=== PATIENT | female | born 1985 | race Caucasian/White ===

== ENCOUNTER 2021-01-15 13:09 | Emergency (ER) | payer OTHER ==
--- NOTE | 2021-01-15 14:40 | ED Physician Documentation ---
History of Present Illness - Stated complaint Stated Complaint: CHEST TIGHTNESS/BLURRED VISION - Chief complaint Chief Complaint: Resp - Additonal information Additional information: 35-year-old female presents the emergency department for evaluation of worsening shortness of breath over the last month. She reports that she exercises daily but over the last month she has noted a decreased exercise tolerance. She self admits that she is a hypochondriac and has severe whitecoat syndrome and feels that the shortness of air is causing her anxiety to be worse. She is also concerned that she may have long-haul COVID-19 symptoms. 2 months ago she did have some loss of taste and smell and thinks that she may have had COVID-19 infection though she did not get tested. She became very worried this morning when she was sitting at home watching TV and had a aura in both of her eyes that limited her vision. She denies any headache nausea or vomiting associated with this. No diplopia. Was very brief lasted seconds and is not present at this time. She takes no oral contraceptives, no unilateral leg swelling, no recent surgery or immobilization no personal history of blood clots or cancer. She takes no prescribed medications but does take a whole host of supplements from a health food store. Past medical history includes medical conditions similar to ankylosing spondylosis which she is unsure the full name of, irritable bowel syndrome, 2 gene MTHFR as well as PCOS. Review of Systems Constitutional: denies: Fever, Chills, Myalgias Eyes: reports: Other (Visual aura bilaterally lasted seconds this morning. Not present at baseline). denies: Loss of vision, Discharge, Irritation Ears: reports: Reviewed and negative Nose: reports: Reviewed and negative Throat: reports: Reviewed and negative Cardiac: denies: Chest pain / pressure, Palpitations, Pedal edema, Calf pain Respiratory: reports: Dyspnea. denies: Cough, Hemoptysis, Wheezing GI: denies: Abdominal Pain, Nausea, Vomiting : reports: Reviewed and negative Skin: reports: Reviewed and negative Musculoskeletal: reports: Reviewed and negative Neurologic: reports: Reviewed and negative PD PAST MEDICAL HISTORY - Present Medications Home Medications: Ambulatory Orders Medication Instructions Recorded Confirmed No Known Home Medications 01/15/21 01/15/21 - Allergies Allergies/Adverse Reactions: Allergies Allergy/AdvReac Type Severity Reaction Status Date / Time amoxicillin Allergy Rash Verified 01/15/21 13:24 PD ED PE EXPANDED - General General: Alert, No acute distress, Anxious - Neck Neck: Supple w/out meningeal sx, No tenderness. No: Adenopathy - Cardiac Cardiac: Regular Rate, Radial strong equal, Pedal strong equal, Cap refill < 2 sec. No: Murmur Present - Respiratory Respiratory: Clear to ausultation cali. No: Distress, Labored - Abdomen Abdomen: Normal Bowel sounds. No: Tender to palpation - Derm Derm: Normal color, Warm and dry. No: Rash - Extremities Extremities: Normal, Pedal edema bilateral. No: Deformity, Tenderness - Neuro Neuro: Alert and Oriented X 3, CNII-XII intact, Normal gait, Normal finger nose, Normal speech. No: Confused, Disoriented - GCS Eye Opening: Spontaneous Motor: Obeys Commands Verbal: Oriented Total: 15 - Psych Psych: Anxious, Pressured speech Results - Vitals Vitals: Vital Signs - 24 hr 01/15/21 01/15/21 13:18 15:24 Temperature 36.7 C 36.9 C Heart Rate 85 71 Respiratory 18 14 Rate Blood Pressure 148/82 H 123/72 O2 Saturation 99 100 Oxygen O2 Source Room air - EKG (time done) 1314 Rate: Rate (enter#) (91) Rhythm: NSR [place]der[place]: Normal Intervals: Normal TN QRS: Normal Ischemia: Normal ST segments Compare to prior EKG: Old EKG unavailable Computer interpretation: Agree with computer - Labs Labs: Laboratory Tests 01/15/21 01/15/21 01/15/21 14:49 14:49 14:49 WBC 7.1 RBC 4.38 Hgb 12.9 Hct 38.3 MCV 87.4 MCH 29.5 MCHC 33.7 RDW 12.9 Plt Count 241 MPV 11.6 H Neut # (Auto) 4.8 Lymph # (Auto) 1.8 [place] # (Auto) 0.4 Eos # (Auto) 0.1 Baso # (Auto) 0.0 Absolute Nucleated RBC 0.00 Nucleated RBC % 0.0 D-Dimer Sodium 139 Potassium 3.8 Chloride 104 Carbon Dioxide 26 Anion Gap 9.0 BUN 12 Creatinine 0.8 Estimated GFR (MDRD) 83 L Glucose 95 Calcium 9.3 Total Bilirubin 0.7 AST 16 ALT 24 Alkaline Phosphatase 49 Troponin I High Sens 3.7 Total Protein 7.8 Albumin 4.5 Globulin 3.3 Albumin/Globulin Ratio 1.4 Lipase 25 01/15/21 14:49 WBC RBC Hgb Hct MCV MCH MCHC RDW Plt Count MPV Neut # (Auto) Lymph # (Auto) [place] # (Auto) Eos # (Auto) Baso # (Auto) Absolute Nucleated RBC Nucleated RBC % D-Dimer < 200.0 L Sodium Potassium Chloride Carbon Dioxide Anion Gap BUN Creatinine Estimated GFR (MDRD) Glucose Calcium Total Bilirubin AST ALT Alkaline Phosphatase Troponin I High Sens Total Protein Albumin Globulin Albumin/Globulin Ratio Lipase - Rads (name of study) CXR Radiology: Final report received (No acute cardiopulmonary process.) PD MEDICAL DECISION MAKING - ED course Complexity details: reviewed results, re-evaluated patient, considered differential, d/w patient ED course: 35-year-old female presents emergency department for evaluation of worsening shortness of air over the last month. This was also associated with a very brief period of bilateral aura and both of her eyes at this morning that caused her to have panic and worry. She is concerned that she may have had COVID-19 2 months ago and that she might be presenting as a long-haul her. Screening EKG shows no ischemic or worrisome findings. High-sensitivity troponin and D-dimer are negative. Chest x-ray shows no pneumonia, cardia megaly or worrisome finding otherwise. Patient reported to provider that when she was told that her labs x-ray and EKG were essentially normal she felt much better and thinks that she just has anxiety and whitecoat syndrome. I did discuss with her that exercise intolerance should always be evaluated in the long-term by her primary care provider. She may benefit from referral for an outpatient echocardiogram or stress test but is not indicated emergently today in the emergency department. Departure - Departure Disposition: Home, Self Care Clinical Impression: Shortness of breath, Aura Condition: Stable Record reviewed to determine appropriate education?: Yes Comments: Leah you are seen today in the emergency department today for worsening shortness of breath with activity over the last month as well as a brief episode of vision change in both your eyes. Your screening labs, chest x-ray and EKG are all essentially unremarkable. However new or worsening shortness of breath and somebody is otherwise young and healthy should be further evaluated on an outpatient basis with primary care doctor. You may benefit from an outpatient stress test or echocardiogram. The aura in both your eyes this morning may have been of visual or occipital migraine. Please discuss this event with your eye doctor. Return to the emergency department if you have any fainting episodes, sudden weakness in your arms or legs or cannot breathe adequately.
--- NOTE | 2021-01-15 14:53 | XRAY Report ---
PROCEDURE: Chest 1 View X-Ray INDICATIONS: SOA TECHNIQUE: One view of the chest was acquired. COMPARISON: None FINDINGS: Surgical changes and devices: None. Lungs and pleura: No pleural effusions or pneumothorax. Lungs are clear. Mediastinum: Mediastinal contours appear normal. Heart size is normal. Bones and chest wall: No suspicious bony lesions. Overlying soft tissues appear unremarkable. IMPRESSION: No acute pulmonary process. Reviewed by: Shannon Ayala MD on 01/15/2021 2:52 PM PDT Approved by: Shannon Ayala MD on 01/15/2021 2:52 PM PDT Station ID: [id number]
[2021-01-15 15:22] LABS: ALBUMIN 4.5 g/dL (3.2-5.5); ALBUMIN/GLOBULIN RATIO 1.4 (1.0-2.2); BILIRUBIN,TOTAL 0.7 mg/dL (0.2-1.0); CALCIUM 9.3 mg/dL (8.5-10.3); CREATININE 0.8 mg/dL (0.4-1.0); POTASSIUM 3.8 mmol/L (3.5-5.0); TOTAL PROTEIN 7.8 g/dL (6.7-8.2)
[2021-01-15 15:25] LABS: BASOPHILS % (AUTO) 0.6 %; EOSINOPHILS # (AUTO) 0.1 10^3/uL (0.0-0.7); EOSINOPHILS % (AUTO) 0.8 %; HCT - HEMATOCRIT 38.3 % (37.0-47.0); HGB - HEMOGLOBIN 12.9 g/dL (12.0-16.0); LYMPHOCYTES # (AUTO) 1.8 10^3/uL (1.5-3.5); MEAN CORPUSCULAR HEMOGLOBIN 29.5 pg (27.0-31.0); MEAN CORPUSCULAR HGB CONC 33.7 g/dL (32.0-36.0); MEAN CORPUSCULAR VOLUME 87.4 fL (81.0-99.0); MEAN PLATELET VOLUME 11.6 fL (7.9-10.8); MONOCYTES # (AUTO) 0.4 10^3/uL (0.0-1.0); MONOCYTES % (AUTO) 5.6 %; NEUTROPHILS # (AUTO) 4.8 10^3/uL (1.5-6.6); NEUTROPHILS % (AUTO) 67.7 %; PLT - PLATELET COUNT 241 10^3/uL (130-450); RED BLOOD COUNT 4.38 10^6/uL (4.20-5.40); RED CELL DISTRIBUTION WIDTH 12.9 % (12.0-15.0); WHITE BLOOD COUNT 7.1 x10^3/uL (4.8-10.8)
[2021-01-15 16:49] VITALS: BP 127/72
== END 2021-01-15 16:45 | disposition home or self-care (01) ==
LOC: ED 13:09
DX: R06.02 Shortness of breath (principal); H53.8 Other visual disturbances
CPT/HCPCS: 36415; 80053; 83690; 84484; 85025; 85379; 93005; 99284